=== PATIENT | male | born 1995 | race Caucasian/White ===

== ENCOUNTER 2017-10-18 20:36 | Emergency (ER) | payer MEDICARE ==
[~2017-10-18] VITALS: Ht 182.9 cm; Wt 129.1 kg
[~2017-10-18 20:36] MED LIST: NAPROSYN500 MG PO
[2017-10-18 21:37] LABS: HEMATOCRIT 41.8 % (38.0-50.0); HEMOGLOBIN 14.9 G/DL (12.5-16.6); MCH 30.5 PG (29.0-34.0); MCHC 35.6 G/DL (30.0-36.0); MCV 85.7 FL (86-99); PLATELET COUNT 292 K/uL (156-360); RBC DIS.WIDTH-CV 12.2 % (11.8-14.6); RED BLOOD COUNT 4.88 M/uL (4.00-5.50); WHITE BLOOD COUNT 9.5 K/uL (4.1-10.2)
[2017-10-18 21:45] LABS: ALBUMIN 4.6 g/dL (3.2-4.8); CHLORIDE 106 mEq/L (99-109); POTASSIUM 3.9 mEq/L (3.7-5.4); SODIUM 141 mEq/L (136-147)
[2017-10-18 21:47] LABS: GLUCOSE 85 mg/dL (70-99); TOTAL PROTEIN 7.6 g/dL (6.4-8.3)
[2017-10-18 21:49] LABS: TOTAL BILIRUBIN 0.2 mg/dL (0.0-1.0)
[2017-10-18 21:51] LABS: ALKALINE PHOSPHATASE 66 IU/L (3-129); CREATININE 0.8 mg/dL (0.6-1.3); GFR ESTIMATE (CALCULATED) > 59 mL/min/ (58.99-99999)
[2017-10-18 21:52] LABS: AST (GOT) 30 IU/L (2-34); UREA NITROGEN (BUN) 10 mg/dL (9-23)
[2017-10-18 21:54] LABS: ALT (GPT) 64 IU/L (3-49); LIPASE 21 U/L (1.0-51.0)
[2017-10-18 21:57] LABS: APPEARANCE CLEAR ((CLEAR)); BILIRUBIN NEGATIVE; BLOOD NEGATIVE; COLOR YELLOW ((YELLOW)); GLUCOSE (STRIP) NEGATIVE; KETONES NEGATIVE; LEUKOCYTES NEGATIVE; NITRITE NEGATIVE; PROTEIN (STRIP) NEGATIVE; SPECIFIC GRAVITY 1.017 (1.000-1.030); UCUL ADDED? NO; UROBILINOGEN 0.2 MG/DL (0.2-1.0)
[2017-10-19] MEDS ORDERED: BACTRIM,SEPT1 TABLET PO (01:26)
[2017-10-19 02:14] VITALS: BP 149/92
== END 2017-10-19 02:15 | disposition home or self-care (01) ==
LOC: EME 20:36
DX: L03.311 Cellulitis of abdominal wall (principal); R11.0 Nausea; R19.7 Diarrhea, unspecified; F17.200 Nicotine dependence, unspecified, uncomplicated
CPT/HCPCS: 74177; 80053; 81003; 83690; 85027; 99281; 99284; J0780; J2270